=== PATIENT | female | born 1985 | race Native Hawaiian/Other Pacific Islander ===

== ENCOUNTER 2017-03-18 11:08 | Observation (INO) | payer OTHER ==
[~2017-03-18] VITALS: Ht 170.2 cm; Wt 62.6 kg
[2017-03-18 11:15] VITALS: BP 143/85; TEMP 98.5
[2017-03-18 12:30] VITALS: BP 141/86
[2017-03-18 13:30] VITALS: BP 140/86
[2017-03-18 14:45] VITALS: BP 139/82; TEMP 98.3
[2017-03-18 15:20] VITALS: BP 112/65; TEMP 98.9; Ht 170.2 cm; Wt 62.6 kg
[2017-03-18 15:52] LABS: PLATELET COUNT 392 K/uL (152-353)
[2017-03-18 15:55] LABS: POTASSIUM 3.4 mmol/L (3.6-5.2); SODIUM 134 mmol/L (136-145)
[2017-03-19 05:27] LABS: PLATELET COUNT 362 K/uL (152-353)
[2017-03-19 05:58] LABS: POTASSIUM 3.6 mmol/L (3.6-5.2); SODIUM 134 mmol/L (136-145)
== END 2017-03-19 15:55 | disposition home or self-care (01) ==
LOC: ED 11:08 → MED/SURG 14:30
PROVIDERS: ADMIT Family Medicine
PROC: 0DTJ4ZZ Resection of Appendix, Percutaneous Endoscopic Approach (ICD-10-PCS; principal; 2017-03-18)
DX: K36 Other appendicitis (principal)
CPT/HCPCS: 80048; 80053; 81000; 82150; 83690; 85027; 96365; 96366; 96367; 96374; 96375; 99220; 99284; G0378; J0132; J0330; J1100; J1170; J1885; J1956; J2001; J2250; J2405; J2704; J2710; J2765; J3010; J3490; Q9963; S0028

== ENCOUNTER 2017-11-06 16:43 | Emergency (ER) | payer OTHER ==
[~2017-11-06] VITALS: Ht 170.2 cm; Wt 66.7 kg
[2017-11-06 17:35] LABS: PLATELET COUNT 339 K/uL (152-353)
[2017-11-06 18:27] VITALS: BP 138/85; TEMP 98.4
== END 2017-11-06 18:27 | disposition home or self-care (01) ==
LOC: ED 16:43
DX: D68.0 Von Willebrand disease (principal)
CPT/HCPCS: 36415; 85002; 85027; 85610; 85730; 99283

== ENCOUNTER 2021-01-08 15:31 | Emergency (ER) | payer OTHER ==
[~2021-01-08] VITALS: Ht 170.2 cm; Wt 59.0 kg
[2021-01-08 15:32] VITALS: TEMP 98.2
[2021-01-08] MEDS ORDERED: SUBOXONE1 MI2 SL (15:46)
[2021-01-08 16:19] VITALS: BP 128/79
== END 2021-01-08 16:20 | disposition home or self-care (01) ==
LOC: ED 15:31
DX: H92.02 Otalgia, left ear (principal)
CPT/HCPCS: 96372; 99283; J0696; J1885; J3490